=== PATIENT | male | born 1980 | race Two or more races ===

== ENCOUNTER 2018-03-21 14:21 | Emergency (ER) | payer MEDICAID ==
[~2018-03-21] VITALS: Ht 182.9 cm; Wt 94.0 kg
[2018-03-21 14:32] VITALS: BP 162/86
[2018-03-21] MEDS ORDERED: KETOROLAC 30 MG/1 ML IM ONE (15:00)
[2018-03-21] MEDS ORDERED: ONDANSETRON ODT 4 MG PO ONE (15:00)
[2018-03-21] MEDS ORDERED: OXYcodone/APAP 5/325MG TABLET PO ONE (15:00)
[2018-03-21] MEDS ORDERED: CYCLOBENZAPRINE 10 MG TABLET PO ONE (15:00)
[2018-03-21] MEDS ORDERED: OXYcodone/APAP 5/325MG TABLET ONE (15:02)
[2018-03-21] MEDS ORDERED: CYCLOBENZAPRINE 10 MG TABLET ONE (15:02)
[2018-03-21] MEDS ORDERED: ONDANSETRON ODT 4 MG ONE (15:03)
--- NOTE | 2018-03-21 15:28 | NUR ---
Patient/Caregiver given discharge instructions and they have confirmed that they understand the instructions. Patient assisted to DC desk via wheelchair. Family to drive patient home for safe DC.
== END 2018-03-21 15:31 | disposition home or self-care (01) ==
LOC: ED 15:25
DX: M54.42 Lumbago with sciatica, left side (principal); G89.29 Other chronic pain; M25.552 Pain in left hip; M25.562 Pain in left knee; M79.652 Pain in left thigh
CPT/HCPCS: 99284; J7512; Q0162